=== PATIENT | male | born 1950 | race Caucasian/White ===

== ENCOUNTER 2022-09-09 13:09 | Outpatient (CLI) | payer MEDICARE, OTHER, SELFPAY ==
--- NOTE | ~2022-09-09 | XR_ITS ---
EXAM: XR knee LT min 4V DATE: 09/09/2022 13:44 HISTORY: M25.562 - Pain in left knee WT BEARING INSTABILITY NON INJ . COMPARISON: None available. FINDINGS: Decreased mineralization. Old fibular head fracture. No acute fracture or dislocation. No lytic or blastic lesion. Mild medial joint space narrowing. Mild tricompartmental osteophytosis. No e rosion or periosteal change. Small-volume joint fluid. Atherosclerotic calcifications. IMPRESSION: Mild tricompartmental left knee osteoarthritis. Small left knee joint effusion. Reviewed, dictated and finalized at location K. IMPRESSION: Mild tricompartmental left knee osteoarthritis. Small left knee reed nt effusion.
== END 2022-09-09 13:10 | disposition home or self-care (01) ==
PROVIDERS: PCP Family Medicine; Visit Provider Family Medicine
DX: M17.12 Unilateral primary osteoarthritis, left knee (principal); M25.462 Effusion, left knee
CPT/HCPCS: 73564